=== PATIENT | female | born 1990 | race Caucasian/White ===

== ENCOUNTER 2020-04-11 11:19 | Emergency (ER) | payer BC ==
[~2020-04-11] VITALS: Ht 167.6 cm; Wt 59.4 kg
[2020-04-11 11:26] VITALS: Ht 167.6 cm; Wt 59.4 kg
[2020-04-11 14:48] VITALS: BP 116/72
== END 2020-04-11 14:48 | disposition home or self-care (01) ==
LOC: ED 11:19
DX: T74.21XA Adult sexual abuse, confirmed, initial encounter (principal)